=== PATIENT | female | born 1955 | race Caucasian/White ===

== ENCOUNTER 2018-07-25 21:00 | Inpatient (IN) | payer OTHER ==
[~2018-07-25] VITALS: Ht 165.1 cm; Wt 81.6 kg
[2018-07-25] MEDS ORDERED: SODIUM CHLORIDE 0.9% 1,000 ML IV ONE (22:55)
[2018-07-25] MEDS ORDERED: ONDANSETRON HCL 4MG/2ML VIAL IV STA (22:55)
[2018-07-25] MEDS ORDERED: MORPHINE SULFATE 4 MG/ML CPJ (NOT FOR IM USE) IV STA (22:55)
[2018-07-25 23:17] LABS: BASOPHILS % 0.4 % (0.0-2.0); EOSINOPHILS % 1.2 % (0.0-5.0); HEMATOCRIT. 31.7 % (36.0-48.0); HEMOGLOBIN. 10.8 g/dL (12.0-16.0); MEAN CORPUSCULAR HEMOGLOBIN 28.7 pg (28.0-32.0); MEAN CORPUSCULAR VOLUME 84.2 fL (81.0-99.0); MEAN PLATELET VOLUME 7.5 fl (7.4-10.4); MONOCYTES % 8.6 % (2.0-8.0); NEUTROPHILS % 70.8 % (40.0-76.0); PLATELET 310 x1000/uL (130-400); RED BLOOD CELL COUNT 3.77 mill/uL (4.2-5.4); RED CELL DISTRIBUTION WIDTH 14.2 % (11.6-14.6)
[2018-07-25 23:26] LABS: INR 1.2; PROTHROMBIN TIME 11.6 sec (9.1-11.1)
[2018-07-25 23:43] LABS: CHLORIDE 105 mEq/L (98-107)
[2018-07-26] VITALS (8 sets, daily range): BP systolic 106–171; BP diastolic 59–79
[2018-07-26 00:28] LABS: CLARITY URINE CLEAR (CLEAR); COLOR URINE YELLOW (YELLOW); KETONES URINE NEGATIVE (NEGATIVE); LEUKOCYTE ESTERASE URINE NEGATIVE (NEGATIVE); NITRITE URINE NEGATIVE (NEGATIVE); OCCULT BLOOD URINE NEGATIVE (NEGATIVE); PROTEIN URINE 1+ (NEGATIVE); SPECIFIC GRAVITY URINE 1.028 (1.005-1.030)
[2018-07-26] MEDS ORDERED: VANCOMYCIN 1 G PREMIX 200 ML IV SCH (02:30)
[2018-07-26] MEDS ORDERED: PIPERACILLIN SODIUM/TAZOBACTAM 4.5 G in DEXT 5% WATER 100 ML IV SCH (02:30)
[2018-07-26] MEDS ORDERED: ONDANSETRON HCL 4MG/2ML VIAL IV PRN (05:45)
[2018-07-26] MEDS ORDERED: PIPERACILLIN/TAZOBACTAM 3.375GM/50ML PREMIX IV SCH (06:00)
[2018-07-26] MEDS ORDERED: IOHEXOL-300 100 ML BOTTLE ONE (06:42)
[2018-07-26] MEDS: ACETAMINOPHEN 325MG TABLET PO PRN ×2 (08:53→22:56)
[2018-07-26] MEDS: MORPHINE SULFATE 4 MG/ML CPJ (NOT FOR IM USE) IV PRN (08:55)
[2018-07-26] MEDS ORDERED: ENOXAPARIN 40MG/0.4ML SYR SUBCUT SCH (09:00)
[2018-07-26 10:26] LABS: HEMATOCRIT 31.2 % (36.0-48.0); HEMOGLOBIN 10.8 g/dL (12.0-16.0); MEAN CORPUSCULAR HEMOGLOBIN 29.2 pg (28.0-32.0); MEAN CORPUSCULAR VOLUME 84.1 fL (81.0-99.0); PLATELET 298 x1000/uL (130-400); RED BLOOD CELL COUNT 3.71 mill/uL (4.2-5.4); RED CELL DISTRIBUTION WIDTH 13.7 % (11.6-14.6)
[2018-07-26 10:57] LABS: CHLORIDE 104 mEq/L (98-107)
[2018-07-26] MEDS: PIPERACILLIN/TAZ 3.375G PREMIX 50 ML IV SCH ×2 (12:50→18:22)
[2018-07-26 16:04] LABS: TOTAL IRON BINDING CAPACITY 203 ug/dL (250-450)
[2018-07-26] MEDS: FERROUS SULFATE 325MG TABLET PO SCH (16:32)
[2018-07-26] MEDS: VANCOMYCIN 1 G PREMIX 200 ML IV SCH (16:32)
[2018-07-26] MEDS: DOCUSATE SODIUM 100MG CAPSULE PO SCH (16:32)
[2018-07-27] VITALS (17 sets, daily range): BP systolic 85–130; BP diastolic 52–88
[2018-07-27] MEDS: PIPERACILLIN/TAZ 3.375G PREMIX 50 ML IV SCH ×5 (00:38→23:46)
[2018-07-27] MEDS: VANCOMYCIN 1 G PREMIX 200 ML IV SCH ×2 (05:29→19:05)
[2018-07-27] MEDS: FERROUS SULFATE 325MG TABLET PO SCH ×3 (06:22→17:23)
[2018-07-27 07:29] LABS: CHLORIDE 103 mEq/L (98-107)
[2018-07-27 07:30] LABS: BASOPHILS % 0.5 % (0.0-2.0); EOSINOPHILS % 1.9 % (0.0-5.0); HEMATOCRIT. 35.1 % (36.0-48.0); LYMPHOCYTES % 15.2 % (20.0-50.0); MEAN CORPUSCULAR HEMOGLOBIN 28.9 pg (28.0-32.0); MEAN CORPUSCULAR VOLUME 84.7 fL (81.0-99.0); MEAN PLATELET VOLUME 7.8 fl (7.4-10.4); MONOCYTES % 8.8 % (2.0-8.0); NEUTROPHILS % 73.6 % (40.0-76.0); PLATELET 340 x1000/uL (130-400); RED BLOOD CELL COUNT 4.15 mill/uL (4.2-5.4)
[2018-07-27] MEDS: DOCUSATE SODIUM 100MG CAPSULE PO SCH ×2 (09:00→17:23)
[2018-07-27] MEDS ORDERED: FENTANYL CITRATE/PF 50MCG/ML 2ML VIAL ONE (10:16)
[2018-07-27] MEDS ORDERED: SODIUM BICARBONATE 4% (2.4MEQ) 5ML VIAL IV ONE (10:17)
[2018-07-27] MEDS ORDERED: LIDOCAINE HCL/PF 1% 10 MG/ML 30ML VIAL ONE (10:17)
[2018-07-27] MEDS ORDERED: FENTANYL CITRATE/PF 50MCG/ML 2ML VIAL IV ONE (11:30)
[2018-07-27] MEDS: HYDROCODONE/ACETAMINOPHEN 5/325MG TABLET PO PRN ×2 (14:57→19:43)
[2018-07-27] MEDS: MORPHINE SULFATE 4 MG/ML CPJ (NOT FOR IM USE) IV PRN (22:11)
[2018-07-28] VITALS (7 sets, daily range): BP systolic 105–118; BP diastolic 63–69
[2018-07-28] MEDS: PIPERACILLIN/TAZ 3.375G PREMIX 50 ML IV SCH ×3 (05:06→17:30)
[2018-07-28] MEDS: VANCOMYCIN 1 G PREMIX 200 ML IV SCH (05:56)
[2018-07-28 06:31] LABS: BASOPHILS % 0.7 % (0.0-2.0); EOSINOPHILS % 2.7 % (0.0-5.0); HEMOGLOBIN. 11.3 g/dL (12.0-16.0); LYMPHOCYTES % 21.8 % (20.0-50.0); MEAN CORPUSCULAR HEMOGLOBIN 28.8 pg (28.0-32.0); MEAN CORPUSCULAR VOLUME 84.1 fL (81.0-99.0); MEAN PLATELET VOLUME 7.9 fl (7.4-10.4); MONOCYTES % 8.3 % (2.0-8.0); NEUTROPHILS % 66.5 % (40.0-76.0); PLATELET 352 x1000/uL (130-400); RED BLOOD CELL COUNT 3.92 mill/uL (4.2-5.4); RED CELL DISTRIBUTION WIDTH 13.9 % (11.6-14.6)
[2018-07-28 07:35] LABS: CHLORIDE 101 mEq/L (98-107)
[2018-07-28 07:46] LABS: VANCOMYCIN TROUGH 10.3 ug/mL (5.0-10.0)
[2018-07-28] MEDS: DOCUSATE SODIUM 100MG CAPSULE PO SCH ×2 (08:22→16:40)
[2018-07-28] MEDS: FERROUS SULFATE 325MG TABLET PO SCH ×3 (08:22→16:40)
[2018-07-28] MEDS ORDERED: VANCOMYCIN 1500MG in DEXTROSE 5% WATER 250ML IV SCH (18:00)
== END 2018-07-28 21:17 | disposition home health service (06) | DRG 919 ==
LOC: ER 21:00 → 5WST 07-26 02:59 → UNDOADMIN 07-26 02:59 → EDBEDREQ 07-26 03:02 → EDBEDREQTM 07-26 03:02 → EDBEDREQ 07-26 03:36 → ENRESERV 07-26 03:43
PROVIDERS: ADMIT Internal Medicine; ATTEND Internal Medicine
PROC: 0W9F30Z Drainage of Abdominal Wall with Drainage Device, Percutaneous Approach (ICD-10-PCS; principal; 2018-07-27)
DX: K91.872 Postprocedural seroma of a digestive system organ or structure following a digestive system procedure (principal); A41.9 Sepsis, unspecified organism; E43 Unspecified severe protein-calorie malnutrition; L03.311 Cellulitis of abdominal wall; E66.9 Obesity, unspecified; I10 Essential (primary) hypertension; D64.9 Anemia, unspecified; Y83.8 Other surgical procedures as the cause of abnormal reaction of the patient, or of later complication, without mention of misadventure at the time of the procedure; Z68.30 Body mass index [BMI] 30.0-30.9, adult; Z90.49 Acquired absence of other specified parts of digestive tract; Y92.89 Other specified places as the place of occurrence of the external cause
CPT/HCPCS: 36415; 74177; 77012; 80048; 80053; 80202; 81003; 82728; 83036; 83540; 83550; 83690; 85025; 85027; 85610; 87040; 87070; 87077; 87205; 96361; 96365; 96375; 99285; C1729; J1650; J2270; J2405; J2543; J3010; J3370; J3490; J7030; J7050; J7060; Q9967